=== PATIENT | male | born 1955 | race Caucasian/White ===

== ENCOUNTER 2020-04-11 08:49 | Emergency (ER) | payer BC ==
[2020-04-11] MEDS ORDERED: Ketorolac 60 MG/2 ML SDV IM ONE (09:37)
[2020-04-11] MEDS ORDERED: Ketorolac 60 MG/2 ML SDV ONE (09:47)
--- NOTE | 2020-04-11 10:27 | CR ---
DATE OF SERVICE: 04/11/20 CLINICAL DATA: pain LUMBAR SPINE: No priors. There is diffuse osteopenia. There is compression deformity of the superior endplate of L3 with approximately 20% loss of height anteriorly, age indeterminate. The vertebral bodies are otherwise of average height. There is slight retrolisthesis of L2 on L3, of L3 on L4, and of L4 on L5. There is slight anterolisthesis of L5 on S1. There is a transitional vertebral body at the S1 level with pseudoarthrosis between S1 and S2 bilaterally. There is degenerative disc disease throughout the lumbar spine. Mild narrowing of the L1-2, L2-3, and L3-4 disc spaces. There is facet joint hypertrophy throughout the lumbar spine. There are degenerative changes involving the SI joints and there are osteoarthritic changes involving both hip joints. No other significant findings. [id number] [facility]
--- NOTE | 2020-04-11 10:32 | CR ---
DATE OF SERVICE: 04/11/2020 CLINICAL DATA: Fall Right wrist: No priors. There is a transverse lucency through the proximal pole of the navicular consistent with a nondisplaced fracture. There is a faint lucency through the proximal 1st metacarpal suspicious for a nondisplaced fracture. No other acute abnormalities. There are osteoarthritic changes involving multiple joints of the wrist with severe osteoarthritic changes involving the carpometacarpal joint and metacarpophalangeal joints of the thumb. There is a large subchondral cyst in the distal radius. There is soft tissue calcification adjacent to the ulnar styloid process and distal ulnar. No other significant findings. MTDD
--- NOTE | 2020-04-11 11:00 | EDM.PDOC ---
ED HPI GENERAL MEDICAL PROBLEM - General Chief Complaint: General Stated Complaint: FALL, WRIST INJURY 04/10/20 Time Seen by Provider: 04/11/20 09:15 Source of Information: Reports: Patient History Limitations: Reports: No Limitations - History of Present Illness INITIAL COMMENTS - FREE TEXT/NARRATIVE: Patient is a 64 y/o male who presents with right hand/wrist injury and left lo wer back injury, after falling from about 6 feet prior to arrival. He denies any head injury, loss of consciousness, dizziness, numbness/tingling, or difficulty ambulating/bearing weight. Patient with swelling and pain to right dorsal hand and is right hand dominant. Right Wrist Pain Score (Numeric/FACES): 5 Lower Back Pain Score (Numeric/FACES): 7 - Related Data Allergies Allergy/AdvReac Type Severity Reaction Status Date / Time No Known Allergies Allergy Verified 03/17/16 09:16 Home Meds: Home Meds Celecoxib [CeleBREX] 50 mg PO DAILY 03/17/16 [History] Fluticasone Propionate [Flonase Allergy Relief] 9.9 ml NS DAILY 03/17/16 [History] Losartan [Cozaar] 50 mg PO DAILY 04/11/20 [History] Metoprolol Succinate 50 mg PO DAILY 04/11/20 [History] amLODIPine [Norvasc] 10 mg PO DAILY 04/11/20 [History] hydroCHLOROthiazide [Hydrochlorothiazide] 25 mg PO DAILY 04/11/20 [History] Past Medical History HEENT History: Reports: Hard of Hearing, Impaired Vision, Sinusitis, Other (See Below) Other HEENT History: 3 Sinus operations. Cardiovascular History: Reports: Hypertension Musculoskeletal History: Reports: Arthritis, Fracture Dermatologic History: Reports: Urticaria - Infectious Disease History Infectious Disease History: Reports: Measles - Past Surgical History Musculoskeletal Surgical History: Reports: Other (See Below) Social & Family History - Family History Family Medical History: Noncontributory - Tobacco Use Smoking Status *Q: Current Every Day Smoker Years of Tobacco use: 50 Packs/Tins Daily: 0.2 - Caffeine Use Caffeine Use: Reports: Coffee - Alcohol Use Days Per Week of Alcohol Use: 5 Number of Drinks Per Day: 5 Total Drinks Per Week: 25 - Recreational Drug Use Recreational Drug Use: No ED ROS GENERAL - Review of Systems Review Of Systems: Comprehensive ROS is negative, except as noted in HPI. ED EXAM, GENERAL - Physical Exam Exam: See Below Free Text/Narrative:: Swelling and tenderness to palpation to right dorsal hand over 1st proximal metacarpal and scaphoid. FROM of right thumb and right wrist. Abrasion to left lower back. No step-off or deformity to lumbar spine and no tenderness or swelling on exam. Patient with FROM of lower back and can ambulate and bear weight without difficulty. Cap refill to right hand and digits < 2 seconds. Peripheral pulses 2+ bilaterally in the upper extremities. Exam Limited By: No Limitations General Appearance: Alert, No Apparent Distress Peripheral Pulses: 2+: Radial (L), Radial (R) Extremities: Normal Range of Motion, Normal Capillary Refill Neurological: Alert, Oriented, CN II-XII Intact, Normal Cognition, Normal Gait, No Motor/Sensory Deficits Skin Exam: Warm, Dry Course - Vital Signs Last Recorded V/S: Last Vital Signs Temp 35.6 C L 04/11/20 09:04 Pulse 59 L 04/11/20 09:04 Resp 20 04/11/20 09:04 BP 140/89 04/11/20 09:04 Pulse Ox 97 04/11/20 09:04 - Orders/Labs/Meds Meds: Medications Discontinued Medications Generic Name Dose Route Start Last Admin Trade Name Peterq PRN Reason Stop Dose Admin Ketorolac Tromethamine 60 mg 04/11/20 09:37 04/11/20 09:40 Toradol IM 04/11/20 09:38 60 mg ONETIME ONE Administration Ketorolac Tromethamine Confirm 04/11/20 09:47 04/11/20 10:21 Toradol Administered 04/11/20 09:48 Not Given Dose 60 mg .ROUTE .STK-MED ONE Departure - Departure Time of Disposition: 11:00 Disposition: Home, Self-Care 01 Condition: Good Clinical Impression: Scaphoid fracture, wrist, closed Qualifiers: Encounter type: initial encounter Scaphoid bone location: unspecified portion of scaphoid Fracture alignment: nondisplaced Laterality: right Qualified Code(s): S62.001A - Unspecified fracture of navicular [scaphoid] bone of right wrist, initial encounter for closed fracture - Discharge Information *PRESCRIPTION DRUG MONITORING PROGRAM REVIEWED*: No *COPY OF PRESCRIPTION DRUG MONITORING REPORT IN PATIENT JACK: No Instructions: Wrist Fracture Treated With Immobilization, [id number] Referrals: PCP,None [Primary Care Provider] - Forms: ED Department Discharge Additional Instructions: Discharge home. Wear the splint at all times, ice the right wrist when not wearing the splint. Ortho referral will be set up, they will call you with appointment. Percocet 5/325mg by mouth every 4 to 6 hours as needed for pain. Do not drink or drive while take this. Flexeril 10mg by mouth every 8 hours for muscle spasms for 10 days. Do not drink or drive while take this. Diclofenac 50mg by mouth 2 times a day for pain and swelling for 10 days. Do not over use the right wrist.. Follow up as needed with primary provider. Sepsis Event Note (ED) - Evaluation Sepsis Screening Result: No Definite Risk - Focused Exam Vital Signs: Vital Signs Temp Pulse Resp BP Pulse Ox 04/11/20 09:04 35.6 C L 59 L 20 140/89 97 - Assessment/Plan Assessment:: Closed, non-displaced fracture to right 1st digit, navicular, and scaphoid. Lumbar without any acute findings. Thumb spica wrist splint placed on patient's right hand. Toradol 60 mg IM given. Discussed with Breanna SALAZAR, orthopedic Center in [place] and will follow with patient. Referral and images sent to Orthopedic center. Discussed in length and detail to patient about the importance of follow up with the scaphoid fracture. Prescriptions for percocet and flexeril - no alcohol use or driving with these medications as they can make you drowsy. Start diclofenac tomorrow with food and take as directed. Return to the ED for fever >102, unable to tolerate fluids, difficulty breathing/swallowing, and/or persistent/worsening symptoms.
== END 2020-04-11 11:00 | disposition home or self-care (01) ==
LOC: LB.ED 08:49
DX: S62.034A Nondisplaced fracture of proximal third of navicular [scaphoid] bone of right wrist, initial encounter for closed fracture (principal); S30.810A Abrasion of lower back and pelvis, initial encounter; I10 Essential (primary) hypertension; F17.210 Nicotine dependence, cigarettes, uncomplicated; Z79.899 Other long term (current) drug therapy; W12.XXXA Fall on and from scaffolding, initial encounter
CPT/HCPCS: 29125; 72100; 73100-RT; 96372; 99283; 99283-25; J1885

== ENCOUNTER 2020-12-14 19:49 | Emergency (ER) | payer BC ==
[2020-12-14] MEDS ORDERED: Aspirin 325 MG Tab.EC PO ONE (19:50)
[2020-12-14] MEDS: Morphine 2 MG/ML SYRINGE SUBCUT PRN ×2 (20:23→23:02)
[2020-12-14] MEDS ORDERED: Sodium Chloride 0.9% 1,000 ML IV SCH (20:24)
--- NOTE | 2020-12-14 20:35 | EDM.PDOC ---
ED HPI GENERAL MEDICAL PROBLEM - General Chief Complaint: General Stated Complaint: RIB PAIN Time Seen by Provider: 12/14/20 19:49 Source of Information: Reports: Patient, RN History Limitations: Reports: Other (pain) - History of Present Illness INITIAL COMMENTS - FREE TEXT/NARRATIVE: Mr. White is a 65 YO male who came to the ED with chest, abd and left rib pain. Pain is 10/10 he has not taken anything for the pain. Hx of HTN, AA in the ascending/ descending AO. Patient stated he fell on Friday he is unsure if he broke a rib or if this is cardiac related. Upon examination he was grabbing his chest and his side. He states he feels warm and is nauseated. He did not vomit, no diarrhea, no fever. Lungs were CTA. Normal sinus rhythm. Onset: Today Onset Date: 12/14/20 Duration: Day(s): Location: Reports: Chest, Abdomen Quality: Reports: Pressure, Sharp Severity: Severe Improves with: Reports: None Worsens with: Reports: Movement Associated Symptoms: Reports: Chest Pain, Nausea/Vomiting, Weakness Left Upper Chest Pain Score (Numeric/FACES): 10 - Related Data Allergies Allergy/AdvReac Type Severity Reaction Status Date / Time No Known Allergies Allergy Verified 03/17/16 09:16 Home Meds: Home Meds Fluticasone Propionate [Flonase Allergy Relief] 9.9 ml NS DAILY PRN 03/17/16 [History] Losartan [Cozaar] 50 mg PO DAILY 04/11/20 [History] Metoprolol Succinate 50 mg PO DAILY 04/11/20 [History] amLODIPine [Norvasc] 10 mg PO DAILY 04/11/20 [History] hydroCHLOROthiazide [Hydrochlorothiazide] 25 mg PO DAILY 04/11/20 [History] Past Medical History HEENT History: Reports: Hard of Hearing, Impaired Vision, Sinusitis, Other (See Below) Other HEENT History: 3 Sinus operations. Cardiovascular History: Reports: Hypertension Musculoskeletal History: Reports: Arthritis, Fracture Dermatologic History: Reports: Urticaria - Infectious Disease History Infectious Disease History: Reports: Measles - Past Surgical History Musculoskeletal Surgical History: Reports: Other (See Below) Social & Family History - Family History Family Medical History: No Pertinent Family History - Tobacco Use Tobacco Use Status *Q: Former Tobacco User Used Tobacco, but Quit: Yes Month/Year Tobacco Last Used: 2009 Second Hand Smoke Exposure: No - Caffeine Use Caffeine Use: Reports: Coffee - Recreational Drug Use Recreational Drug Use: No ED ROS GENERAL - Review of Systems Review Of Systems: Comprehensive ROS is negative, except as noted in HPI. Respiratory: Reports: Shortness of Breath Cardiovascular: Reports: Chest Pain GI/Abdominal: Reports: Abdominal Pain, Nausea Musculoskeletal: Reports: Other (left rib pain) ED EXAM, GENERAL - Physical Exam Exam: See Below Exam Limited By: Other (pain 07/15) Nose: Normal Inspection, Normal Mucosa Throat/Mouth: Normal Inspection Head: Atraumatic, Normocephalic Neck: Normal Inspection, Non-Tender, Full Range of Motion Respiratory/Chest: No Respiratory Distress, Lungs Clear, Normal Breath Sounds Cardiovascular: Normal Peripheral Pulses, Regular Rate, Rhythm, No Edema Peripheral Pulses: 1+: Posterior Tibial (L), Posterior Tibial (R), 2+: Brachial (L), Brachial (R) GI/Abdominal: Normal Bowel Sounds, Soft Back Exam: Normal Inspection, Full Range of Motion Extremities: Normal Inspection, Normal Range of Motion, Non-Tender Psychiatric: Normal Affect, Normal Mood Skin Exam: Warm, Dry, Intact Lymphatic: No Adenopathy #1 Interpretation EKG Date: 12/14/20 Time: 19:50 Rhythm: NSR ST-T: Other (inferolateral ischemia, LVH) Comparison: NA - No Prior EKG Course - Vital Signs Last Recorded V/S: Last Vital Signs Temp 36.1 C 12/14/20 22:17 Pulse 58 L 12/14/20 22:17 Resp 17 12/14/20 22:17 BP 123/71 12/14/20 22:17 Pulse Ox 96 12/14/20 22:17 - Orders/Labs/Meds Orders: Active Orders 24 hr Category Date Time Status EKG Documentation Completion [RC] ASDIRECTED Care 12/14/20 19:51 Active EKG Documentation Completion [RC] ASDIRECTED Care 12/14/20 21:59 Active CXR [Chest 1V Frontal] [CR] Stat Exams 12/14/20 20:01 Taken Chest Abdomen Pelvis w Cont [CT] Stat Exams 12/14/20 19:49 Taken Chest wo Cont [CT] Stat Exams 12/14/20 Taken TROPONIN I [CHEM] Stat Lab 12/14/20 22:20 Received Morphine Med 12/14/20 19:52 Active 1 mg SUBCUT Q1H PRN Sodium Chloride 0.9% [Normal Saline] 1,000 ml Med 12/14/20 20:24 Active IV ASDIRECTED EKG 12 Lead [EK] Routine Ther 12/14/20 21:54 Ordered Medication Orders Sodium Chloride (Normal Saline) 1,000 mls @ 125 mls/hr IV ASDIRECTED SUDHEER Last Admin: 12/14/20 20:24 Dose: 125 mls/hr Documented by: YEIMI Morphine Sulfate (Morphine 2 Mg/Ml Syringe) 1 mg SUBCUT Q1H PRN PRN Reason: Abdominal Pain Last Admin: 12/14/20 20:23 Dose: 1 mg Documented by: YEIMI Labs: Laboratory Tests 12/14/20 12/14/20 12/14/20 Range/Units 20:05 20:05 20:05 WBC 6.6 (4.0-11.0) K/uL RBC 4.90 (4.50-6.50) M/uL Hgb 15.2 (13.0-18.0) g/dL Hct 44.7 (40.0-54.0) % MCV 91 (76-96) fL MCH 31.0 (27.0-32.0) pg MCHC 34.0 (31.0-35.0) g/dL RDW 12.9 (11.0-16.0) % Plt Count 370 (150-400) K/uL MPV 8.7 (6.0-10.0) fL Neut % (Auto) 41.6 L (45.0-70.0) % Lymph % (Auto) 41.0 H (20.0-40.0) % [place] % (Auto) 11.5 H (3.0-10.0) % Eos % (Auto) 4.8 (1.0-5.0) % Baso % (Auto) 1.1 H (0.0-0.5) % Neut # (Auto) 2.75 (2.00-7.50) K/uL Lymph # (Auto) 2.71 (1.50-4.00) K/uL [place] # (Auto) 0.76 (0.20-0.80) K/uL Eos # (Auto) 0.32 (0.04-0.40) K/uL Baso # (Auto) 0.07 (0.02-0.10) K/uL D-Dimer, Quantitative (0-400) ng/mL Sodium 138 (136-145) mmol/L Potassium 3.3 L (3.5-5.1) mmol/L Chloride 100 (98-107) mmol/L Carbon Dioxide 26.2 (21.0-32.0) mmol/L Anion Gap 15.1 H (5.0-15.0) mmol/L BUN 11 (8-26) mg/dL Creatinine 1.11 (0.70-1.30) mg/dL Est Cr Clr Drug Dosing 80.36 mL/min Estimated GFR (MDRD) > 60 (>60) MLS/MIN BUN/Creatinine Ratio 9.9 (6-25) Glucose 111 H (74-100) mg/dL Calcium 9.0 (8.5-10.1) mg/dL Total Bilirubin 0.4 (0.0-1.0) mg/dL AST 34 (15-37) U/L ALT 49 (12-78) U/L Alkaline Phosphatase 82 (46-116) U/L Creatine Kinase 237 H (21-232) U/L Troponin I < 0.017 (0.000-0.060) ng/mL B-Natriuretic Peptide 125 (0-125) pg/mL Total Protein 7.8 (6.4-8.2) g/dL Albumin 4.2 (3.4-5.0) g/dL Globulin 3.6 (2.2-4.2) g/dL Albumin/Globulin Ratio 1.2 (0.8-2.0) SARS-CoV-2 RNA (ANDREY) (NEGATIVE) 12/14/20 12/14/20 Range/Units 20:05 21:45 WBC (4.0-11.0) K/uL RBC (4.50-6.50) M/uL Hgb (13.0-18.0) g/dL Hct (40.0-54.0) % MCV (76-96) fL MCH (27.0-32.0) pg MCHC (31.0-35.0) g/dL RDW (11.0-16.0) % Plt Count (150-400) K/uL MPV (6.0-10.0) fL Neut % (Auto) (45.0-70.0) % Lymph % (Auto) (20.0-40.0) % [place] % (Auto) (3.0-10.0) % Eos % (Auto) (1.0-5.0) % Baso % (Auto) (0.0-0.5) % Neut # (Auto) (2.00-7.50) K/uL Lymph # (Auto) (1.50-4.00) K/uL [place] # (Auto) (0.20-0.80) K/uL Eos # (Auto) (0.04-0.40) K/uL Baso # (Auto) (0.02-0.10) K/uL D-Dimer, Quantitative 269 (0-400) ng/mL Sodium (136-145) mmol/L Potassium (3.5-5.1) mmol/L Chloride (98-107) mmol/L Carbon Dioxide (21.0-32.0) mmol/L Anion Gap (5.0-15.0) mmol/L BUN (8-26) mg/dL Creatinine (0.70-1.30) mg/dL Est Cr Clr Drug Dosing mL/min Estimated GFR (MDRD) (>60) MLS/MIN BUN/Creatinine Ratio (6-25) Glucose (74-100) mg/dL Calcium (8.5-10.1) mg/dL Total Bilirubin (0.0-1.0) mg/dL AST (15-37) U/L ALT (12-78) U/L Alkaline Phosphatase (46-116) U/L Creatine Kinase (21-232) U/L Troponin I (0.000-0.060) ng/mL B-Natriuretic Peptide (0-125) pg/mL Total Protein (6.4-8.2) g/dL Albumin (3.4-5.0) g/dL Globulin (2.2-4.2) g/dL Albumin/Globulin Ratio (0.8-2.0) SARS-CoV-2 RNA (ANDREY) Negative (NEGATIVE) Meds: Medications Generic Name Dose Route Start Last Admin Trade Name Freq PRN Reason Stop Dose Admin Sodium Chloride 1,000 mls @ 125 mls/hr 12/14/20 20:24 12/14/20 20:24 Normal Saline IV 125 mls/hr ASDIRECTED SUDHEER Administration Morphine Sulfate 1 mg 12/14/20 19:52 12/14/20 20:23 Morphine 2 Mg/Ml Syringe SUBCUT 1 mg Q1H PRN Administration Abdominal Pain Discontinued Medications Generic Name Dose Route Start Last Admin Trade Name Peterq PRN Reason Stop Dose Admin Metoprolol Tartrate 25 mg 12/14/20 20:48 12/14/20 20:24 Metoprolol Tartrate 50 Mg Tab PO 12/14/20 20:49 25 mg ONETIME ONE Administration Morphine Sulfate 1 mg 12/14/20 21:21 12/14/20 21:22 Morphine 2 Mg/Ml Syringe IVPUSH 12/14/20 21:22 1 mg ONETIME ONE Administration Pantoprazole Sodium 40 mg 12/14/20 22:42 12/14/20 22:48 Pantoprazole 40 Mg Vial IVPUSH 12/14/20 22:43 40 mg ONETIME ONE Administration Departure - Departure Time of Disposition: 00:00 Disposition: DC/Tfer to Acute Hospital 02 Condition: Good Clinical Impression: Unstable angina, Thoracic aortic aneurysm, without rupture - Discharge Information *PRESCRIPTION DRUG MONITORING PROGRAM REVIEWED*: Not Applicable Instructions: Thoracic Aortic Aneurysm, Angina, [id number] Forms: ED Department Discharge Additional Instructions: Patient is being Transferred to a higher level of care at [facility] to consult with Interventional Cardiology and receive further testing. Sepsis Event Note (ED) - Evaluation Sepsis Screening Result: No Definite Risk - Focused Exam Vital Signs: Vital Signs Temp Pulse Pulse Resp BP BP Pulse Ox 12/14/20 22:17 36.1 C 58 L 17 123/71 96 12/14/20 22:02 59 L 14 125/74 95 12/14/20 21:45 60 17 115/53 L 95 12/14/20 21:29 36.1 C 64 18 118/73 96 12/14/20 20:24 82 157/134 H 12/14/20 20:22 36.6 C 54 L 18 157/134 H 98 12/14/20 19:51 36.3 C 64 24 H 154/98 H 95 - My Orders Last 24 Hours: My Active Orders 12/14/20 Chest wo Cont [CT] Stat 12/14/20 19:49 Chest Abdomen Pelvis w Cont [CT] Stat 12/14/20 19:51 EKG Documentation Completion [RC] ASDIRECTED 12/14/20 19:52 Morphine 1 mg SUBCUT Q1H PRN 12/14/20 20:01 CXR [Chest 1V Frontal] [CR] Stat 12/14/20 20:24 Sodium Chloride 0.9% [Normal Saline] 1,000 ml IV ASDIRECTED 12/14/20 21:54 EKG 12 Lead [EK] Routine 12/14/20 21:59 EKG Documentation Completion [RC] ASDIRECTED 12/14/20 22:20 TROPONIN I [CHEM] Stat - Assessment/Plan Last 24 Hours: My Active Orders 12/14/20 Chest wo Cont [CT] Stat 12/14/20 19:49 Chest Abdomen Pelvis w Cont [CT] Stat 12/14/20 19:51 EKG Documentation Completion [RC] ASDIRECTED 12/14/20 19:52 Morphine 1 mg SUBCUT Q1H PRN 12/14/20 20:01 CXR [Chest 1V Frontal] [CR] Stat 12/14/20 20:24 Sodium Chloride 0.9% [Normal Saline] 1,000 ml IV ASDIRECTED 12/14/20 21:54 EKG 12 Lead [EK] Routine 12/14/20 21:59 EKG Documentation Completion [RC] ASDIRECTED 12/14/20 22:20 TROPONIN I [CHEM] Stat Assessment:: Unstable Angina Hx of thoracic AA Plan: Transfer to in [place] by [facility] Accepting into the ED.
[2020-12-14] MEDS ORDERED: Metoprolol Tartrate 50 MG Tab PO ONE (20:48)
[2020-12-14] MEDS ORDERED: Morphine 2 MG/ML SYRINGE IVPUSH ONE ×2 (21:21→23:36)
[2020-12-14] MEDS ORDERED: Pantoprazole 40 MG Vial IVPUSH ONE (22:42)
[2020-12-14] MEDS ORDERED: Pantoprazole 40 MG Vial ONE (22:57)
[2020-12-14] MEDS ORDERED: Morphine 2 MG/ML SYRINGE ONE (23:11)
[2020-12-14] MEDS ORDERED: Nitroglycerin 0.4 MG Tab.SL SL ONE (23:30)
[2020-12-14] MEDS ORDERED: Nitroglycerin 0.4 MG Tab.SL ONE (23:30)
[2020-12-14 23:57] VITALS: BP 126/71; PULSE 55
--- NOTE | 2020-12-15 08:34 | CR ---
DATE OF SERVICE: 12/14/20 CLINICAL DATA: chest pain AP CHEST: No priors. The patient has taken a poor inspiration. The heart size is normal. There is calcification of the aortic arch. There is subtle increased density in the left lung base adjacent to the left hemidiaphragm consistent with basilar atelectasis or infiltrate. There is also blunting of the left costophrenic angle consistent with small left pleural effusion. The right lung is clear. No pneumothorax. [id number] [facility]
--- NOTE | 2020-12-15 08:46 | CT ---
DATE OF SERVICE: 12/14/20 CLINICAL DATA: chest pain ENHANCED CHEST CT: Multislice acquisition through the chest with IV contrast was performed. Comparison is made to a prior unenhanced chest CT dated 12/14/20. No evidence of PE. No pneumothorax. There is a small left pleural effusion. The ascending aorta is mildly aneurysmal. It measures 4.7 cm in diameter. No evidence of dissection. There are subtle ground glass opacities in both lungs. There are atelectatic changes in the dependent portion of both lungs and in both lung bases. There is poorly defined infiltrate with consolidation in the left lung base. Pneumonia should be considered. The heart size is normal. No significant pericardial effusion. No hilar or mediastinal adenopathy. There is degenerative disc disease throughout the thoracic spine. No other significant findings. IMPRESSION: 1. No evidence of PE. Mild aneurysmal dilatation of ascending aorta. No dissection. 2. Subtle ground glass opacities in both lungs. Infiltrate and consolidation in the left lung base. Pneumonia should be considered. 3. Other findings as discussed above. ENHANCED ABDOMEN AND PELVIC CT: Multislice acquisition through the abdomen and pelvis with IV, but without oral contrast was performed. Infiltrate and consolidation in the left lung base. See chest CT dictation. There is diffuse fatty infiltration of the liver. There is an 11 mm circumscribed fluid density lesion in the right lobe of the liver most likely representing a cyst. No other focal hepatic lesions. The gallbladder appears normal. No biliary duct dilatation. The spleen appears normal. The pancreas appears normal. The right and left adrenals appear normal. The right and left kidneys enhance symmetrically. No hydronephrosis or hydroureter. The bladder is fluid-filled. It appears normal. No evidence of appendicitis. There is a moderate amount of gas and stool present throughout the colon. No free air. No free fluid. No dilated loops of bowel. No adenopathy. No aortic aneurysm or dissection. There is a small fat-containing umbilical hernia. There are small fat- containing inguinal hernias bilaterally. There is degenerative disc disease throughout the lower thoracic and lumbar spine. There is compression deformity of the superior endplates of the L2 and L3 vertebra, age indeterminate, probably chronic. No other significant findings. [id number] [facility]
--- NOTE | 2020-12-15 08:51 | CT ---
DATE OF SERVICE: 12/14/20 CLINICAL DATA: Left side chest/rib pain UNENHANCED CHEST CT: Multislice acquisition through the chest without IV contrast was performed. No priors. Breathing motion artifact degrades the quality of the study. There are atelectatic changes in the dependent portion of both lungs. There are subtle ground glass opacities in both lower lungs. There is infiltrate and consolidation in the left lung base and there are atelectatic changes in the right lung base. Pneumonia should be considered. There is a very small left pleural effusion. No pneumothorax. The heart size is normal. There is mild coronary artery calcification. The ascending aorta is aneurysmal. It measures 4.8 cm in diameter. No hilar or mediastinal adenopathy. There is degenerative disc disease throughout the thoracic spine. [id number] [facility]
== END 2020-12-15 00:30 ==
LOC: LB.ED 19:49
DX: I20.0 Unstable angina (principal); I71.2 Thoracic aortic aneurysm, without rupture; I10 Essential (primary) hypertension; Z79.899 Other long term (current) drug therapy; Z87.891 Personal history of nicotine dependence; Z20.822 Contact with and (suspected) exposure to COVID-19
CPT/HCPCS: 36415; 71045; 71250; 71260; 74177; 80053; 82550; 83880; 84484; 85025; 85379; 93005; 96372; 96374; 96375; 96376; 99285; 99285-25; A0425; A0429; A9270-GY; C9113; J2270; J7030; U0002